=== PATIENT | male | born 1960 | race Caucasian/White ===

== ENCOUNTER 2020-12-20 12:00 | Inpatient (IN) | payer MEDICAID, SELFPAY ==
[~2020-12-20] VITALS: Ht 172.7 cm; Wt 94.8 kg
[~2020-12-20 12:00] MED LIST: ASPI-1393 PO; CEPH-568 PO; FURO-150 PO; LIB25 PO; MET10 PO; METO25TA6 PO; SPIR25TA PO; THIA100T70 PO
[2020-12-20 12:22] VITALS: BP_SYST 84
[2020-12-20] MEDS ORDERED: NACL 0.9% 1,000 ML IV ONE (13:00)
[2020-12-20] MEDS ORDERED: PIPERACILLIN/TAZOBACTAM 3.375 GM/VIAL (ZOSYN) IV ONE ×2 (13:00)
[2020-12-20] MEDS ORDERED: PIPERACILLIN/TAZO 3.375 GM in NS 50 ML IV ONE (13:00)
[2020-12-20] MEDS ORDERED: VANCOMYCIN HCL 1,000 MG in NS 250 ML IV ONE (13:00)
[2020-12-20] MEDS ORDERED: VANCOMYCIN HCL 1000 MG/VIAL IV ONE (13:51)
[2020-12-20 14:28] LABS: BILIRUBIN,URINE 3+ (NEGATIVE); CLARITY/URINE TURBID (CLEAR); GLUCOSE,URINE TRACE (NEGATIVE); KETONES,URINE 1+ (NEGATIVE); LEUKOCYTE ESTERASE ,URINE TRACE (NEGATIVE); NITRITE, URINE POSITIVE (NEGATIVE); PH,URINE 5.5 (5.0-8.0); PROTEIN URINE 1+ (NEGATIVE)
[2020-12-20 14:33] LABS: BLOOD, URINE TRACE (NEGATIVE); COLOR,URINE ORANGE (YELLOW); UROBILINOGEN,URINE >=8 (0.2-1.0)
[2020-12-20 14:39] LABS: BACTERIA,URINE MODERATE /HPF (None Seen); MUCUS,URINE 1+ /LPF (None Seen)
[2020-12-20 14:42] LABS: BARBITURATE, URINE NEGATIVE (NEG <=200); METHAMPHETAMINES SCREEN,URINE NEGATIVE (NEG <=500); URINE AMPHETAMINE NEGATIVE (NEG <=500)
[2020-12-20 14:43] LABS: CANNABINOID, URINE NEGATIVE (NEG <=50); COCAINE, URINE NEGATIVE (NEG <=150); PHENCYCLIDINE SCREEN,URINE NEGATIVE (NEG <=25); URINE METHADONE POSITIVE (NEG <=200)
[2020-12-20 14:44] LABS: BENZODIAZEPINE, URINE POSITIVE (NEG <=150); OPIATE, URINE NEGATIVE (NEG <=100); UR TRICYCLIC ANTIDEPRESSANTS NEGATIVE (NEG <=300); URINE OXYCODONE SCREEN NEGATIVE (NEG <=100); URINE PROPOXYPHENE SCREEN NEGATIVE (NEG <=300)
[2020-12-20 15:30] LABS: BASOPHILS % (AUTO) 0.1 % (0.0-2.0); CALCIUM 7.9 mg/dL (8.4-11.0); CREATININE 0.69 mg/dL (0.55-1.30); EOSINOPHILS % (AUTO) 0.2 % (0.0-4.0); HEMATOCRIT 28.7 % (36-54); HEMOGLOBIN 9.9 g/dL (14.0-18.0); LYMPHOCYTES # (AUTO) 1.1 K/uL (1.0-5.5); LYMPHOCYTES % (AUTO) 15.1 % (20.5-51.5); MEAN CORPUSCULAR HEMOGLOBIN 46 pg (27-31); MEAN CORPUSCULAR HGB CONC 35 % (32-36); MEAN CORPUSCULAR VOLUME 131 fL (79.0-98.0); MONOCYTES # (AUTO) 0.9 K/uL (0.0-1.0); MONOCYTES % (AUTO) 12.4 % (1.7-9.3); NEUTROPHILS # (AUTO) 5.5 K/uL (1.8-7.7); NEUTROPHILS % (AUTO) 72.2 % (40.0-70.0); POTASSIUM 3.2 mmol/L (3.5-5.1); RED BLOOD CELL COUNT(AUTO) 2.18 MIL/uL (4.2-6.2); RED CELL DISTRIBUTION WIDTH 18.5 % (9.0-15.0); WHITE BLOOD COUNT (AUTO) 7.6 K/uL (4.8-10.8)
[2020-12-20 15:34] LABS: ALBUMIN 1.3 g/dL (3.4-4.8); PHOSPHORUS 2.7 mg/dL (2.7-4.5); TOTAL BILIRUBIN 8.5 mg/dL (0.0-1.0)
[2020-12-20 15:40] LABS: PLATELET COUNT (AUTO) 80 K/uL (130-430)
[2020-12-20] MEDS ORDERED: DEXTROSE 50% JECT 50 ML DISP.SYRIN ONE (16:12)
[2020-12-20 17:24] VITALS: BP_SYST 105
[2020-12-20] MEDS ORDERED: THIAMINE HCL 500 MG in NS 50 ML IV ONE (18:45)
[2020-12-20 19:33] LABS: INR 2.6 (0.80-1.20); PROTHROMBIN TIME 26.1 SECS (9.5-12.5)
[2020-12-20] MEDS ORDERED: THIAMINE HCL 100 MG/ML VIAL ONE (20:08)
[2020-12-20 21:44] VITALS: BP_SYST 130
[2020-12-20] MEDS ORDERED: ONDANSETRON HCL 4 MG/2 ML VIAL IVP PRN (23:45)
[2020-12-20] MEDS ORDERED: ACETAMINOPHEN 325 MG TABLET PO PRN (23:45)
[2020-12-21] MEDS ORDERED: FOLIC ACID 1 MG, THIAMINE HCL 100 MG, MAGNESIUM SULFATE 1 GM, MVI 10 ML in NACL 0.9% 1,... IV SCH ×5
[2020-12-21] MEDS ORDERED: KCL 40 mEq in 100 mL (PREMIX) 100 ML IV ONE (00:15)
[2020-12-21] MEDS ORDERED: PIPERACILLIN/TAZOBACTAM 3.375 GM/VIAL (ZOSYN) IV ONE (01:02)
[2020-12-21] MEDS: PIPERACILLIN/TAZO 3.375/DEX-IS 50 ML IV SCH ×5 (01:09→23:20)
[2020-12-21 07:37] LABS: BASOPHILS # (AUTO) 0.1 K/uL (0.0-0.2); BASOPHILS % (AUTO) 0.8 % (0.0-2.0); EOSINOPHILS # (AUTO) 0.1 K/uL (0.0-0.4); EOSINOPHILS % (AUTO) 0.7 % (0.0-4.0); HEMATOCRIT 33.6 % (36-54); HEMOGLOBIN 11.4 g/dL (14.0-18.0); LYMPHOCYTES # (AUTO) 1.1 K/uL (1.0-5.5); LYMPHOCYTES % (AUTO) 15.5 % (20.5-51.5); MEAN CORPUSCULAR HEMOGLOBIN 45 pg (27-31); MEAN CORPUSCULAR HGB CONC 34 % (32-36); MEAN CORPUSCULAR VOLUME 131 fL (79.0-98.0); MONOCYTES # (AUTO) 0.6 K/uL (0.0-1.0); MONOCYTES % (AUTO) 8.6 % (1.7-9.3); NEUTROPHILS # (AUTO) 5.2 K/uL (1.8-7.7); RED BLOOD CELL COUNT(AUTO) 2.56 MIL/uL (4.2-6.2); RED CELL DISTRIBUTION WIDTH 17.8 % (9.0-15.0)
[2020-12-21 07:45] LABS: ALBUMIN 1.3 g/dL (3.4-4.8); CALCIUM 8.2 mg/dL (8.4-11.0); CREATININE 0.7 mg/dL (0.55-1.30); PHOSPHORUS 2.5 mg/dL (2.7-4.5); POTASSIUM 3.8 mmol/L (3.5-5.1); TOTAL BILIRUBIN 8.9 mg/dL (0.0-1.0)
[2020-12-21 08:00] VITALS: BP_SYST 113
[2020-12-21] MEDS: FOLIC ACID 1 MG, MVI 10 ML in NACL 0.9% 1,000 ML IV SCH (08:17)
[2020-12-21] MEDS: SPIRONOLACTONE 25 MG TABLET (ALDACTONE) PO SCH ×2 (08:18→20:36)
[2020-12-21] MEDS: THIAMINE HCL 100 MG, MAGNESIUM SULFATE 1 GM in NS 100 ML IV SCH (08:18)
[2020-12-21] MEDS: FUROSEMIDE 20 MG TABLET PO SCH (08:19)
[2020-12-21] MEDS: METOPROLOL TARTRATE 25 MG TABLET PO SCH ×2 (08:19→20:37)
[2020-12-21] MEDS: ASPIRIN 81 MG TABLET(ECOTRIN) PO SCH (08:19)
[2020-12-21] MEDS: METHADONE HCL 10 MG TABLET PO SCH (08:20)
[2020-12-21 08:23] LABS: NEUTROPHILS % (AUTO) 74.4 % (40.0-70.0)
[2020-12-21] MEDS ORDERED: THIAMINE MONONITRATE PO SCH (09:00)
[2020-12-21 10:33] LABS: ERYTHROCYTE SEDIMENTATION RATE 47 MM/HR (0-15)
[2020-12-21] MEDS: PENTOXIFYLLINE 400 MG TABLET.SA (TRENtal) PO SCH ×2 (10:41→18:00)
[2020-12-21] MEDS: DEXTROSE 50% JECT 50 ML DISP.SYRIN IVP PRN (10:44)
[2020-12-21] MEDS ORDERED: RIFAXIMIN 550 MG TABLET PO ONE (10:45)
[2020-12-21 10:53] LABS: PLATELET COUNT (AUTO) 70 K/uL (130-430)
[2020-12-21 16:05] VITALS: BP_SYST 110
[2020-12-21 20:00] VITALS: BP_SYST 118
[2020-12-21] MEDS: chlordiazePOXIDE HCL 25 MG CAPSULE PO SCH (20:36)
[2020-12-21] MEDS: RIFAXIMIN 550 MG TABLET PO SCH (20:37)
[2020-12-21] MEDS: AZITHROMYCIN 500 MG in NS 250 ML IV SCH (20:45)
[2020-12-22 00:27] VITALS: BP_SYST 115
[2020-12-22] MEDS: PIPERACILLIN/TAZO 3.375/DEX-IS 50 ML IV SCH ×4 (05:22→23:34)
[2020-12-22 07:12] LABS: BASOPHILS % (AUTO) 0.7 % (0.0-2.0); EOSINOPHILS # (AUTO) 0.1 K/uL (0.0-0.4); HEMATOCRIT 34.1 % (36-54); HEMOGLOBIN 11.3 g/dL (14.0-18.0); LYMPHOCYTES # (AUTO) 1.2 K/uL (1.0-5.5); LYMPHOCYTES % (AUTO) 19.3 % (20.5-51.5); MEAN CORPUSCULAR HEMOGLOBIN 44 pg (27-31); MEAN CORPUSCULAR HGB CONC 33 % (32-36); MEAN CORPUSCULAR VOLUME 134 fL (79.0-98.0); MONOCYTES # (AUTO) 0.5 K/uL (0.0-1.0); MONOCYTES % (AUTO) 7.6 % (1.7-9.3); NEUTROPHILS # (AUTO) 4.5 K/uL (1.8-7.7); NEUTROPHILS % (AUTO) 71.4 % (40.0-70.0); PLATELET COUNT (AUTO) 72 K/uL (130-430); RED BLOOD CELL COUNT(AUTO) 2.55 MIL/uL (4.2-6.2); RED CELL DISTRIBUTION WIDTH 19.2 % (9.0-15.0); WHITE BLOOD COUNT (AUTO) 6.3 K/uL (4.8-10.8)
[2020-12-22 08:00] VITALS: BP_SYST 98
[2020-12-22] MEDS: PENTOXIFYLLINE 400 MG TABLET.SA (TRENtal) PO SCH ×3 (08:00→18:00)
[2020-12-22 08:22] LABS: INR 2.2 (0.80-1.20); PROTHROMBIN TIME 22.4 SECS (9.5-12.5)
[2020-12-22] MEDS: METOPROLOL TARTRATE 25 MG TABLET PO SCH ×2 (09:00→19:43)
[2020-12-22] MEDS: SPIRONOLACTONE 25 MG TABLET (ALDACTONE) PO SCH ×2 (09:00→19:43)
[2020-12-22] MEDS: ASPIRIN 81 MG TABLET(ECOTRIN) PO SCH (09:00)
[2020-12-22] MEDS: FUROSEMIDE 20 MG TABLET PO SCH (09:00)
[2020-12-22] MEDS: RIFAXIMIN 550 MG TABLET PO SCH ×2 (09:00→19:43)
[2020-12-22] MEDS: METHADONE HCL 10 MG TABLET PO SCH (09:00)
[2020-12-22] MEDS: THIAMINE HCL 100 MG, MAGNESIUM SULFATE 1 GM in NS 100 ML IV SCH (09:12)
[2020-12-22] MEDS: FOLIC ACID 1 MG, MVI 10 ML in NACL 0.9% 1,000 ML IV SCH (09:15)
[2020-12-22 09:27] LABS: ALBUMIN 1.2 g/dL (3.4-4.8); BILIRUBIN,DIRECT 4.8 mg/dL (0.0-0.3); C-REACTIVE PROTEIN QUANT 6.9 mg/dL (0-0.5); CALCIUM 7.9 mg/dL (8.4-11.0); CREATININE 0.69 mg/dL (0.55-1.30); POTASSIUM 4.1 mmol/L (3.5-5.1); TOTAL BILIRUBIN 8.2 mg/dL (0.0-1.0)
[2020-12-22 11:44] LABS: ERYTHROCYTE SEDIMENTATION RATE 23 MM/HR (0-15)
[2020-12-22] MEDS: DEXTROSE 50% JECT 50 ML DISP.SYRIN IVP PRN ×2 (12:05→18:23)
[2020-12-22 12:30] VITALS: BP_SYST 89
[2020-12-22 16:45] VITALS: BP_SYST 93
[2020-12-22] MEDS: AZITHROMYCIN 500 MG in NS 250 ML IV SCH (19:42)
[2020-12-22] MEDS: LACTULOSE 20 GM/30 ML UDC PO SCH (19:43)
[2020-12-22] MEDS: chlordiazePOXIDE HCL 25 MG CAPSULE PO SCH (19:43)
[2020-12-22 20:00] VITALS: BP_SYST 86
[2020-12-22] MEDS: D5/0.45 NS 1,000 ML IV SCH (21:24)
[2020-12-22 21:28] VITALS: BP_SYST 96
[2020-12-23 00:31] VITALS: BP_SYST 98
[2020-12-23] MEDS: PIPERACILLIN/TAZO 3.375/DEX-IS 50 ML IV SCH ×4 (05:16→23:18)
[2020-12-23 07:29] LABS: ALBUMIN 1.2 g/dL (3.4-4.8); C-REACTIVE PROTEIN QUANT 5.4 mg/dL (0-0.5); PHOSPHORUS 2.1 mg/dL (2.7-4.5); POTASSIUM 3.2 mmol/L (3.5-5.1); TOTAL BILIRUBIN 8.2 mg/dL (0.0-1.0)
[2020-12-23] MEDS: D5/0.45 NS 1,000 ML IV SCH ×3 (07:30→23:17)
[2020-12-23 07:54] LABS: CREATININE 0.82 mg/dL (0.55-1.30)
[2020-12-23] MEDS: PENTOXIFYLLINE 400 MG TABLET.SA (TRENtal) PO SCH ×3 (08:00→17:28)
[2020-12-23 08:15] VITALS: BP_SYST 107
[2020-12-23] MEDS: METOPROLOL TARTRATE 25 MG TABLET PO SCH ×2 (09:00→20:28)
[2020-12-23] MEDS: LACTULOSE 20 GM/30 ML UDC PO SCH ×2 (09:00→20:27)
[2020-12-23] MEDS: RIFAXIMIN 550 MG TABLET PO SCH ×2 (09:00→20:28)
[2020-12-23] MEDS: METHADONE HCL 10 MG TABLET PO SCH (09:00)
[2020-12-23] MEDS: SPIRONOLACTONE 25 MG TABLET (ALDACTONE) PO SCH ×2 (09:00→20:29)
[2020-12-23] MEDS: ASPIRIN 81 MG TABLET(ECOTRIN) PO SCH (09:00)
[2020-12-23] MEDS: FUROSEMIDE 20 MG TABLET PO SCH (09:00)
[2020-12-23] MEDS: FOLIC ACID 1 MG, MVI 10 ML in NACL 0.9% 1,000 ML IV SCH (09:11)
[2020-12-23] MEDS: THIAMINE HCL 100 MG, MAGNESIUM SULFATE 1 GM in NS 100 ML IV SCH (09:11)
[2020-12-23 09:14] LABS: ERYTHROCYTE SEDIMENTATION RATE 44 MM/HR (0-15)
[2020-12-23 09:34] LABS: BASOPHILS % (AUTO) 0.5 % (0.0-2.0); EOSINOPHILS # (AUTO) 0.1 K/uL (0.0-0.4); EOSINOPHILS % (AUTO) 1.2 % (0.0-4.0); HEMATOCRIT 33.3 % (36-54); HEMOGLOBIN 10.8 g/dL (14.0-18.0); LYMPHOCYTES # (AUTO) 1.4 K/uL (1.0-5.5); LYMPHOCYTES % (AUTO) 19.8 % (20.5-51.5); MEAN CORPUSCULAR HEMOGLOBIN 43 pg (27-31); MEAN CORPUSCULAR HGB CONC 32 % (32-36); MONOCYTES # (AUTO) 0.5 K/uL (0.0-1.0); MONOCYTES % (AUTO) 7.5 % (1.7-9.3); NEUTROPHILS # (AUTO) 4.9 K/uL (1.8-7.7); RED CELL DISTRIBUTION WIDTH 18.9 % (9.0-15.0); WHITE BLOOD COUNT (AUTO) 6.9 K/uL (4.8-10.8)
[2020-12-23 09:42] LABS: MEAN CORPUSCULAR VOLUME 133 fL (79.0-98.0)
[2020-12-23 11:26] LABS: PLATELET COUNT (AUTO) 56 K/uL (130-430)
[2020-12-23 12:25] VITALS: BP_SYST 100
[2020-12-23] MEDS ORDERED: K PHOS 30 MM in NS 250 ML IV ONE (12:30)
[2020-12-23 16:11] VITALS: BP_SYST 105
[2020-12-23] MEDS: AZITHROMYCIN 500 MG in NS 250 ML IV SCH (20:18)
[2020-12-23] MEDS: chlordiazePOXIDE HCL 25 MG CAPSULE PO SCH (20:33)
[2020-12-24 00:10] VITALS: BP_SYST 102
[2020-12-24] MEDS: PIPERACILLIN/TAZO 3.375/DEX-IS 50 ML IV SCH ×3 (05:42→17:26)
[2020-12-24 07:09] LABS: INR 2.1 (0.80-1.20); PROTHROMBIN TIME 21.1 SECS (9.5-12.5)
[2020-12-24 07:28] LABS: ALBUMIN 1.1 g/dL (3.4-4.8); BILIRUBIN,DIRECT 4.8 mg/dL (0.0-0.3); C-REACTIVE PROTEIN QUANT 4.6 mg/dL (0-0.5); CALCIUM 7.9 mg/dL (8.4-11.0); CREATININE 0.71 mg/dL (0.55-1.30); POTASSIUM 3.6 mmol/L (3.5-5.1); TOTAL BILIRUBIN 8.7 mg/dL (0.0-1.0)
[2020-12-24 07:51] LABS: BASOPHILS % (AUTO) 0.5 % (0.0-2.0); EOSINOPHILS # (AUTO) 0.1 K/uL (0.0-0.4); EOSINOPHILS % (AUTO) 0.9 % (0.0-4.0); HEMATOCRIT 31.2 % (36-54); HEMOGLOBIN 10.7 g/dL (14.0-18.0); LYMPHOCYTES # (AUTO) 1.2 K/uL (1.0-5.5); MEAN CORPUSCULAR HEMOGLOBIN 46 pg (27-31); MEAN CORPUSCULAR HGB CONC 35 % (32-36); MEAN CORPUSCULAR VOLUME 133 fL (79.0-98.0); MONOCYTES # (AUTO) 0.5 K/uL (0.0-1.0); MONOCYTES % (AUTO) 7.6 % (1.7-9.3); NEUTROPHILS # (AUTO) 4.7 K/uL (1.8-7.7); PLATELET COUNT (AUTO) 59 K/uL (130-430); RED BLOOD CELL COUNT(AUTO) 2.34 MIL/uL (4.2-6.2); RED CELL DISTRIBUTION WIDTH 17.8 % (9.0-15.0); WHITE BLOOD COUNT (AUTO) 6.4 K/uL (4.8-10.8)
[2020-12-24 07:59] VITALS: BP_SYST 106
[2020-12-24] MEDS: PENTOXIFYLLINE 400 MG TABLET.SA (TRENtal) PO SCH ×3 (08:00→17:40)
[2020-12-24] MEDS: METOPROLOL TARTRATE 25 MG TABLET PO SCH ×2 (09:00→20:58)
[2020-12-24 10:31] LABS: ERYTHROCYTE SEDIMENTATION RATE 62 MM/HR (0-15)
[2020-12-24] MEDS: METHADONE HCL 10 MG TABLET PO SCH (10:42)
[2020-12-24] MEDS: SPIRONOLACTONE 25 MG TABLET (ALDACTONE) PO SCH ×2 (10:42→20:57)
[2020-12-24] MEDS: ASPIRIN 81 MG TABLET(ECOTRIN) PO SCH (10:42)
[2020-12-24] MEDS: RIFAXIMIN 550 MG TABLET PO SCH ×2 (10:43→20:56)
[2020-12-24] MEDS: FUROSEMIDE 20 MG TABLET PO SCH (10:43)
[2020-12-24] MEDS: LACTULOSE 20 GM/30 ML UDC PO SCH ×2 (10:43→20:55)
[2020-12-24] MEDS: FOLIC ACID 1 MG, MVI 10 ML in NACL 0.9% 1,000 ML IV SCH (10:45)
[2020-12-24] MEDS: THIAMINE HCL 100 MG, MAGNESIUM SULFATE 1 GM in NS 100 ML IV SCH (10:45)
[2020-12-24 12:28] VITALS: BP_SYST 121
[2020-12-24] MEDS: D5/0.45 NS 1,000 ML IV SCH (13:30)
[2020-12-24 16:14] VITALS: BP_SYST 126
[2020-12-24 20:00] VITALS: BP_SYST 105
[2020-12-24] MEDS: chlordiazePOXIDE HCL 25 MG CAPSULE PO SCH (20:55)
[2020-12-24] MEDS: AZITHROMYCIN 500 MG in NS 250 ML IV SCH (20:55)
[2020-12-25] MEDS: PIPERACILLIN/TAZO 3.375/DEX-IS 50 ML IV SCH ×5 (00:36→23:58)
[2020-12-25 00:50] VITALS: BP_SYST 107
[2020-12-25] MEDS: D5/0.45 NS 1,000 ML IV SCH ×3 (09:30→19:30)
[2020-12-25] MEDS: LACTULOSE 20 GM/30 ML UDC PO SCH ×2 (09:35→21:21)
[2020-12-25] MEDS: FUROSEMIDE 20 MG TABLET PO SCH (09:36)
[2020-12-25] MEDS: ASPIRIN 81 MG TABLET(ECOTRIN) PO SCH (09:36)
[2020-12-25] MEDS: SPIRONOLACTONE 25 MG TABLET (ALDACTONE) PO SCH ×2 (09:36→21:21)
[2020-12-25] MEDS: RIFAXIMIN 550 MG TABLET PO SCH ×2 (09:37→21:21)
[2020-12-25] MEDS: METOPROLOL TARTRATE 25 MG TABLET PO SCH ×2 (09:37→21:21)
[2020-12-25] MEDS: METHADONE HCL 10 MG TABLET PO SCH (09:38)
[2020-12-25] MEDS: PENTOXIFYLLINE 400 MG TABLET.SA (TRENtal) PO SCH ×3 (09:42→18:05)
[2020-12-25] MEDS: FOLIC ACID 1 MG, MVI 10 ML in NACL 0.9% 1,000 ML IV SCH (10:16)
[2020-12-25] MEDS: THIAMINE HCL 100 MG, MAGNESIUM SULFATE 1 GM in NS 100 ML IV SCH (10:18)
[2020-12-25 12:28] VITALS: BP_SYST 117
[2020-12-25 14:12] LABS: BASOPHILS % (AUTO) 0.1 % (0.0-2.0); EOSINOPHILS # (AUTO) 0.1 K/uL (0.0-0.4); EOSINOPHILS % (AUTO) 1.3 % (0.0-4.0); HEMATOCRIT 31.7 % (36-54); HEMOGLOBIN 10.7 g/dL (14.0-18.0); LYMPHOCYTES # (AUTO) 1.1 K/uL (1.0-5.5); LYMPHOCYTES % (AUTO) 10.7 % (20.5-51.5); MEAN CORPUSCULAR HEMOGLOBIN 45 pg (27-31); MEAN CORPUSCULAR HGB CONC 34 % (32-36); MEAN CORPUSCULAR VOLUME 132 fL (79.0-98.0); MONOCYTES # (AUTO) 0.9 K/uL (0.0-1.0); MONOCYTES % (AUTO) 8.5 % (1.7-9.3); NEUTROPHILS % (AUTO) 79.4 % (40.0-70.0); PLATELET COUNT (AUTO) 57 K/uL (130-430); RED CELL DISTRIBUTION WIDTH 17.7 % (9.0-15.0); WHITE BLOOD COUNT (AUTO) 10.1 K/uL (4.8-10.8)
[2020-12-25 14:25] LABS: INR 2.1 (0.80-1.20); PROTHROMBIN TIME 21.1 SECS (9.5-12.5)
[2020-12-25 14:28] LABS: ALBUMIN 1.2 g/dL (3.4-4.8); BILIRUBIN,DIRECT 5.6 mg/dL (0.0-0.3); C-REACTIVE PROTEIN QUANT 5.2 mg/dL (0-0.5); CALCIUM 8.1 mg/dL (8.4-11.0); CREATININE 0.84 mg/dL (0.55-1.30); POTASSIUM 3.5 mmol/L (3.5-5.1); TOTAL BILIRUBIN 9.6 mg/dL (0.0-1.0)
[2020-12-25 14:47] LABS: ERYTHROCYTE SEDIMENTATION RATE 65 MM/HR (0-15)
[2020-12-25 16:17] VITALS: BP_SYST 112
[2020-12-25 20:00] VITALS: BP_SYST 130
[2020-12-25] MEDS: AZITHROMYCIN 500 MG in NS 250 ML IV SCH (21:22)
[2020-12-25] MEDS: chlordiazePOXIDE HCL 25 MG CAPSULE PO SCH (21:24)
[2020-12-25 21:59] LABS: HEPATITIS A AB, IgM Negative (Negative); HEPATITIS B CORE AB, IgM Negative (Negative); HEPATITIS B SURFACE AG Negative (Negative)
[2020-12-26] VITALS (23 sets, daily range): BP systolic 82–125
[2020-12-26] MEDS: LORazepam 2 MG/ML VIAL IVP PRN ×3 (00:27→20:35)
[2020-12-26] MEDS ORDERED: IPRATROPIUM/ALBUTEROL SULFATE 3 ML AMPUL.NEB (DUONEB) INH PRN (00:45)
[2020-12-26] MEDS: D5/0.45 NS 1,000 ML IV SCH ×2 (05:30→15:52)
[2020-12-26] MEDS: PIPERACILLIN/TAZO 3.375/DEX-IS 50 ML IV SCH ×4 (05:50→23:27)
[2020-12-26] MEDS: IPRATROPIUM/ALBUTEROL SULFATE 3 ML AMPUL.NEB (DUONEB) INH SCH ×5 (07:00→23:17)
[2020-12-26] MEDS: PENTOXIFYLLINE 400 MG TABLET.SA (TRENtal) PO SCH ×3 (08:00→19:55)
[2020-12-26] MEDS: SPIRONOLACTONE 25 MG TABLET (ALDACTONE) PO SCH ×2 (09:00→20:09)
[2020-12-26] MEDS: ASPIRIN 81 MG TABLET(ECOTRIN) PO SCH (09:00)
[2020-12-26] MEDS: FUROSEMIDE 20 MG TABLET PO SCH (09:00)
[2020-12-26] MEDS: LACTULOSE 20 GM/30 ML UDC PO SCH ×2 (09:00→20:09)
[2020-12-26] MEDS: METHADONE HCL 10 MG TABLET PO SCH (09:00)
[2020-12-26] MEDS: RIFAXIMIN 550 MG TABLET PO SCH ×3 (09:00→20:10)
[2020-12-26] MEDS: METOPROLOL TARTRATE 25 MG TABLET PO SCH ×2 (09:00→20:09)
[2020-12-26] MEDS: THIAMINE HCL 100 MG, MAGNESIUM SULFATE 1 GM in NS 100 ML IV SCH (09:38)
[2020-12-26] MEDS: FOLIC ACID 1 MG, MVI 10 ML in NACL 0.9% 1,000 ML IV SCH (09:38)
[2020-12-26] MEDS: ALBUMIN HUMAN 5% 250 ML IV SCH ×3 (12:30→23:27)
[2020-12-26] MEDS: FUROSEMIDE 20 MG/2 ML VIAL IVP SCH ×2 (13:15→20:08)
[2020-12-26] MEDS: NOREPINEPHRINE BITARTRATE 16 MG in NS 234 ML IV PRN (16:16)
[2020-12-26] MEDS: chlordiazePOXIDE HCL 25 MG CAPSULE PO SCH (20:09)
[2020-12-27] VITALS (28 sets, daily range): BP systolic 91–160
[2020-12-27] MEDS: LORazepam 2 MG/ML VIAL IVP PRN ×4 (02:06→14:57)
[2020-12-27] MEDS: IPRATROPIUM/ALBUTEROL SULFATE 3 ML AMPUL.NEB (DUONEB) INH SCH ×5 (03:20→19:55)
[2020-12-27] MEDS: PIPERACILLIN/TAZO 3.375/DEX-IS 50 ML IV SCH (05:24)
[2020-12-27] MEDS: ALBUMIN HUMAN 5% 250 ML IV SCH (05:31)
[2020-12-27] MEDS ORDERED: INSULIN REGULAR, HUMAN 100 UNITS/ML, 10 ML VIAL (humuLIN R) SUBCUT PRN (06:00)
[2020-12-27 06:53] LABS: INR 2.2 (0.80-1.20); PROTHROMBIN TIME 22.7 SECS (9.5-12.5)
[2020-12-27 06:57] LABS: ALBUMIN 1.5 g/dL (3.4-4.8); BILIRUBIN,DIRECT 4.7 mg/dL (0.0-0.3); C-REACTIVE PROTEIN QUANT 4.8 mg/dL (0-0.5); CALCIUM 8.2 mg/dL (8.4-11.0); CREATININE 0.83 mg/dL (0.55-1.30); TOTAL BILIRUBIN 9.3 mg/dL (0.0-1.0)
[2020-12-27 07:06] LABS: POTASSIUM 2.9 mmol/L (3.5-5.1)
[2020-12-27 07:34] LABS: BASOPHILS % (AUTO) 0.2 % (0.0-2.0); EOSINOPHILS # (AUTO) 0.2 K/uL (0.0-0.4); EOSINOPHILS % (AUTO) 1.6 % (0.0-4.0); HEMATOCRIT 25.6 % (36-54); HEMOGLOBIN 8.6 g/dL (14.0-18.0); LYMPHOCYTES # (AUTO) 1.4 K/uL (1.0-5.5); MEAN CORPUSCULAR HEMOGLOBIN 45 pg (27-31); MEAN CORPUSCULAR HGB CONC 34 % (32-36); MEAN CORPUSCULAR VOLUME 133 fL (79.0-98.0); MONOCYTES % (AUTO) 7.9 % (1.7-9.3); NEUTROPHILS # (AUTO) 9.7 K/uL (1.8-7.7); NEUTROPHILS % (AUTO) 79.3 % (40.0-70.0); RED CELL DISTRIBUTION WIDTH 17.6 % (9.0-15.0); WHITE BLOOD COUNT (AUTO) 12.2 K/uL (4.8-10.8)
[2020-12-27 09:28] LABS: RED BLOOD CELL COUNT(AUTO) 1.92 MIL/uL (4.2-6.2)
[2020-12-27 09:29] LABS: PLATELET COUNT (AUTO) 47 K/uL (130-430)
[2020-12-27] MEDS: FOLIC ACID 1 MG, MVI 10 ML in NACL 0.9% 1,000 ML IV SCH (09:41)
[2020-12-27] MEDS: THIAMINE HCL 100 MG, MAGNESIUM SULFATE 1 GM in NS 100 ML IV SCH (09:56)
[2020-12-27] MEDS ORDERED: POTASSIUM CHLORIDE 40 MEQ in NS 250 ML IV ONE (10:00)
[2020-12-27] MEDS: FUROSEMIDE 20 MG/2 ML VIAL IVP SCH ×2 (10:39→20:42)
[2020-12-27] MEDS: LACTULOSE 20 GM/30 ML UDC PO SCH ×2 (10:40→20:42)
[2020-12-27] MEDS: METOPROLOL TARTRATE 25 MG TABLET PO SCH ×2 (10:41→20:42)
[2020-12-27] MEDS: METHADONE HCL 10 MG TABLET PO SCH (10:42)
[2020-12-27] MEDS: SPIRONOLACTONE 25 MG TABLET (ALDACTONE) PO SCH ×2 (10:48→20:41)
[2020-12-27] MEDS: ASPIRIN 81 MG TABLET(ECOTRIN) PO SCH (10:49)
[2020-12-27] MEDS: RIFAXIMIN 550 MG TABLET PO SCH ×2 (10:50→20:42)
[2020-12-27] MEDS: PENTOXIFYLLINE 400 MG TABLET.SA (TRENtal) PO SCH ×3 (12:00→17:23)
[2020-12-27 13:33] LABS: ERYTHROCYTE SEDIMENTATION RATE 42 MM/HR (0-15)
[2020-12-27] MEDS ORDERED: MORPHINE SULFATE IN 0.9 % NACL 100 ML IV ONE (15:45)
[2020-12-27] MEDS ORDERED: MORPHINE SULFATE IN 0.9 % NACL 100 ML IV PRN (15:45)
[2020-12-27] MEDS ORDERED: PROPOFOL DRIP 100 ML IV ONE (15:46)
[2020-12-27] MEDS: PROPOFOL DRIP 100 ML IV PRN (16:55)
[2020-12-27] MEDS ORDERED: ROCURONIUM BROMIDE 10 MG/ML (ZEMURON) IV ONE (16:57)
[2020-12-27] MEDS ORDERED: ETOMIDATE 20 MG/ 10 ML VIAL (AMIDATE) IVP ONE (16:57)
[2020-12-27] MEDS: D5/0.45 NS 1,000 ML IV SCH (20:41)
[2020-12-27] MEDS: chlordiazePOXIDE HCL 25 MG CAPSULE PO SCH (20:42)
[2020-12-28] VITALS (33 sets, daily range): BP systolic 98–121
[2020-12-28] MEDS: IPRATROPIUM/ALBUTEROL SULFATE 3 ML AMPUL.NEB (DUONEB) INH SCH ×7 (00:24→22:28)
[2020-12-28] MEDS ORDERED: PROPOFOL DRIP 100 ML IV ONE (02:39)
[2020-12-28] MEDS: NOREPINEPHRINE BITARTRATE 16 MG in NS 234 ML IV PRN (04:00)
[2020-12-28] MEDS: PROPOFOL DRIP 100 ML IV PRN ×2 (05:00→17:45)
[2020-12-28 06:05] LABS: BASOPHILS # (AUTO) 0.1 K/uL (0.0-0.2); BASOPHILS % (AUTO) 0.8 % (0.0-2.0); EOSINOPHILS # (AUTO) 0.6 K/uL (0.0-0.4); EOSINOPHILS % (AUTO) 3.7 % (0.0-4.0); HEMATOCRIT 25.7 % (36-54); HEMOGLOBIN 8.9 g/dL (14.0-18.0); LYMPHOCYTES % (AUTO) 12.8 % (20.5-51.5); MEAN CORPUSCULAR HEMOGLOBIN 47 pg (27-31); MEAN CORPUSCULAR HGB CONC 35 % (32-36); MEAN CORPUSCULAR VOLUME 136 fL (79.0-98.0); MONOCYTES # (AUTO) 0.6 K/uL (0.0-1.0); MONOCYTES % (AUTO) 4.1 % (1.7-9.3); NEUTROPHILS # (AUTO) 12.1 K/uL (1.8-7.7); NEUTROPHILS % (AUTO) 78.6 % (40.0-70.0); PLATELET COUNT (AUTO) 75 K/uL (130-430); RED CELL DISTRIBUTION WIDTH 18.1 % (9.0-15.0); WHITE BLOOD COUNT (AUTO) 15.4 K/uL (4.8-10.8)
[2020-12-28 07:59] LABS: RED BLOOD CELL COUNT(AUTO) 1.89 MIL/uL (4.2-6.2)
[2020-12-28 08:02] LABS: INR 2.2 (0.80-1.20); PROTHROMBIN TIME 22.2 SECS (9.5-12.5)
[2020-12-28 08:40] LABS: ALBUMIN 1.5 g/dL (3.4-4.8); BILIRUBIN,DIRECT 4.9 mg/dL (0.0-0.3); CALCIUM 8.4 mg/dL (8.4-11.0)
[2020-12-28 08:52] LABS: C-REACTIVE PROTEIN QUANT 7.9 mg/dL (0-0.5)
[2020-12-28 08:53] LABS: CREATININE 0.65 mg/dL (0.55-1.30); POTASSIUM 3.5 mmol/L (3.5-5.1)
[2020-12-28 08:54] LABS: TOTAL BILIRUBIN 8.8 mg/dL (0.0-1.0)
[2020-12-28] MEDS: LACTULOSE 20 GM/30 ML UDC PO SCH ×2 (09:00→21:57)
[2020-12-28] MEDS: PENTOXIFYLLINE 400 MG TABLET.SA (TRENtal) PO SCH ×3 (09:01→17:43)
[2020-12-28] MEDS: ASPIRIN 81 MG TABLET(ECOTRIN) PO SCH (09:01)
[2020-12-28] MEDS: SPIRONOLACTONE 25 MG TABLET (ALDACTONE) PO SCH ×2 (09:01→21:56)
[2020-12-28] MEDS: RIFAXIMIN 550 MG TABLET PO SCH ×2 (09:02→21:57)
[2020-12-28] MEDS: METHADONE HCL 10 MG TABLET PO SCH (09:02)
[2020-12-28] MEDS: METOPROLOL TARTRATE 25 MG TABLET PO SCH ×2 (09:03→21:57)
[2020-12-28] MEDS: FUROSEMIDE 20 MG/2 ML VIAL IVP SCH ×3 (09:03→21:58)
[2020-12-28] MEDS: FOLIC ACID 1 MG, MVI 10 ML in NACL 0.9% 1,000 ML IV SCH (09:04)
[2020-12-28] MEDS: THIAMINE HCL 100 MG, MAGNESIUM SULFATE 1 GM in NS 100 ML IV SCH (09:04)
[2020-12-28 10:20] LABS: ERYTHROCYTE SEDIMENTATION RATE 39 MM/HR (0-15)
[2020-12-28] MEDS: VANCOMYCIN HCL 1.25 GM/NS 250 ML IV SCH ×2 (17:42→23:37)
[2020-12-28] MEDS: D5/0.45 NS 1,000 ML IV SCH (17:43)
[2020-12-28] MEDS ORDERED: MAGNESIUM SULFATE 50 ML IV ONE (19:15)
[2020-12-28] MEDS ORDERED: POTASSIUM CHLORIDE 20 MEQ/PKT PACKET PO ONE (19:15)
[2020-12-28] MEDS ORDERED: NOREPINEPHRINE 4 MG/4 ML VIAL IV ONE (21:19)
[2020-12-28] MEDS: chlordiazePOXIDE HCL 25 MG CAPSULE PO SCH (21:57)
[2020-12-28] MEDS: MEROPENEM 1 GM IVPB PREMIX 50 ML IV SCH (23:12)
[2020-12-29] VITALS (36 sets, daily range): BP systolic 100–127
[2020-12-29] MEDS: IPRATROPIUM/ALBUTEROL SULFATE 3 ML AMPUL.NEB (DUONEB) INH SCH ×6 (03:29→22:54)
[2020-12-29] MEDS: MEROPENEM 1 GM IVPB PREMIX 50 ML IV SCH ×3 (05:56→21:19)
[2020-12-29 06:50] LABS: INR 2.2 (0.80-1.20); PROTHROMBIN TIME 22.6 SECS (9.5-12.5)
[2020-12-29] MEDS ORDERED: POTASSIUM CHLORIDE 20 MEQ/PKT PACKET PO ONE (07:45)
[2020-12-29] MEDS ORDERED: MAGNESIUM SULFATE 50 ML IV ONE (07:45)
[2020-12-29 07:56] LABS: BASOPHILS # (AUTO) 0.2 K/uL (0.0-0.2); BASOPHILS % (AUTO) 1.3 % (0.0-2.0); EOSINOPHILS # (AUTO) 0.9 K/uL (0.0-0.4); EOSINOPHILS % (AUTO) 5.8 % (0.0-4.0); HEMATOCRIT 27.8 % (36-54); HEMOGLOBIN 9.6 g/dL (14.0-18.0); LYMPHOCYTES # (AUTO) 1.8 K/uL (1.0-5.5); LYMPHOCYTES % (AUTO) 11.1 % (20.5-51.5); MEAN CORPUSCULAR HEMOGLOBIN 47 pg (27-31); MEAN CORPUSCULAR HGB CONC 35 % (32-36); MEAN CORPUSCULAR VOLUME 136 fL (79.0-98.0); MONOCYTES # (AUTO) 0.7 K/uL (0.0-1.0); MONOCYTES % (AUTO) 4.4 % (1.7-9.3); NEUTROPHILS # (AUTO) 12.4 K/uL (1.8-7.7); NEUTROPHILS % (AUTO) 77.4 % (40.0-70.0); PLATELET COUNT (AUTO) 83 K/uL (130-430); RED BLOOD CELL COUNT(AUTO) 2.05 MIL/uL (4.2-6.2); RED CELL DISTRIBUTION WIDTH 18.3 % (9.0-15.0)
[2020-12-29 08:06] LABS: ALBUMIN 1.3 g/dL (3.4-4.8); CALCIUM 8.4 mg/dL (8.4-11.0); THYROID STIMULATING HORMONE 1.11 uIu/mL (0.34-4.82); TOTAL BILIRUBIN 6.7 mg/dL (0.0-1.0)
[2020-12-29] MEDS: VANCOMYCIN HCL 1.25 GM/NS 250 ML IV SCH (09:13)
[2020-12-29] MEDS: ASPIRIN 81 MG TABLET(ECOTRIN) PO SCH (09:13)
[2020-12-29] MEDS: METHADONE HCL 10 MG TABLET PO SCH (09:13)
[2020-12-29] MEDS: LACTULOSE 20 GM/30 ML UDC PO SCH ×2 (09:13→21:20)
[2020-12-29] MEDS: METOPROLOL TARTRATE 25 MG TABLET PO SCH ×2 (09:14→21:20)
[2020-12-29] MEDS: RIFAXIMIN 550 MG TABLET PO SCH ×2 (09:14→21:20)
[2020-12-29] MEDS: PENTOXIFYLLINE 400 MG TABLET.SA (TRENtal) PO SCH ×3 (09:14→18:16)
[2020-12-29] MEDS: SPIRONOLACTONE 25 MG TABLET (ALDACTONE) PO SCH ×2 (09:14→21:20)
[2020-12-29] MEDS ORDERED: FUROSEMIDE 20 MG/2 ML VIAL IVP ONE (09:30)
[2020-12-29] MEDS ORDERED: FUROSEMIDE 40 MG/4 ML VIAL ONE (09:34)
[2020-12-29] MEDS ORDERED: FUROSEMIDE 40 MG/4 ML VIAL IVP ONE (10:00)
[2020-12-29 12:23] LABS: CREATININE 0.74 mg/dL (0.55-1.30)
[2020-12-29 12:24] LABS: POTASSIUM 3.2 mmol/L (3.5-5.1)
[2020-12-29] MEDS ORDERED: KCL 40 mEq in 100 mL (PREMIX) 100 ML IV ONE (12:45)
[2020-12-29] MEDS: chlordiazePOXIDE HCL 25 MG CAPSULE PO SCH (21:00)
[2020-12-29] MEDS ORDERED: FUROSEMIDE 20 MG/2 ML VIAL IVP SCH (21:00)
[2020-12-29] MEDS: FUROSEMIDE 40 MG/4 ML VIAL IVP SCH (21:19)
[2020-12-30] VITALS (36 sets, daily range): BP systolic 78–113
[2020-12-30] MEDS ORDERED: NOREPINEPHRINE 4 MG/4 ML VIAL IV ONE ×4 (01:30→21:18)
[2020-12-30] MEDS: NOREPINEPHRINE BITARTRATE 16 MG in NS 234 ML IV PRN ×3 (01:36→22:00)
[2020-12-30] MEDS: IPRATROPIUM/ALBUTEROL SULFATE 3 ML AMPUL.NEB (DUONEB) INH SCH ×6 (03:32→23:00)
[2020-12-30] MEDS: PROPOFOL DRIP 100 ML IV PRN ×2 (04:54→14:50)
[2020-12-30] MEDS: MEROPENEM 1 GM IVPB PREMIX 50 ML IV SCH ×3 (04:55→21:54)
[2020-12-30 07:01] LABS: BASOPHILS # (AUTO) 0.1 K/uL (0.0-0.2); BASOPHILS % (AUTO) 0.4 % (0.0-2.0); EOSINOPHILS # (AUTO) 0.1 K/uL (0.0-0.4); EOSINOPHILS % (AUTO) 0.8 % (0.0-4.0); HEMATOCRIT 29.1 % (36-54); HEMOGLOBIN 10.4 g/dL (14.0-18.0); LYMPHOCYTES # (AUTO) 0.8 K/uL (1.0-5.5); LYMPHOCYTES % (AUTO) 5.5 % (20.5-51.5); MEAN CORPUSCULAR HEMOGLOBIN 47 pg (27-31); MEAN CORPUSCULAR HGB CONC 36 % (32-36); MEAN CORPUSCULAR VOLUME 133 fL (79.0-98.0); MONOCYTES # (AUTO) 0.8 K/uL (0.0-1.0); NEUTROPHILS # (AUTO) 13.4 K/uL (1.8-7.7); NEUTROPHILS % (AUTO) 88.3 % (40.0-70.0); PLATELET COUNT (AUTO) 77 K/uL (130-430); RED BLOOD CELL COUNT(AUTO) 2.19 MIL/uL (4.2-6.2); RED CELL DISTRIBUTION WIDTH 18.1 % (9.0-15.0); WHITE BLOOD COUNT (AUTO) 15.1 K/uL (4.8-10.8)
[2020-12-30 07:37] LABS: INR 2.3 (0.80-1.20); PROTHROMBIN TIME 22.9 SECS (9.5-12.5)
[2020-12-30 07:57] LABS: ALBUMIN 1.3 g/dL (3.4-4.8); C-REACTIVE PROTEIN QUANT 11.6 mg/dL (0-0.5); CALCIUM 8.6 mg/dL (8.4-11.0); TOTAL BILIRUBIN 6.3 mg/dL (0.0-1.0); VANCOMYCIN,RANDOM 32.2 ug/mL
[2020-12-30] MEDS: PENTOXIFYLLINE 400 MG TABLET.SA (TRENtal) PO SCH ×3 (08:00→18:00)
[2020-12-30 08:41] LABS: ERYTHROCYTE SEDIMENTATION RATE 50 MM/HR (0-15)
[2020-12-30] MEDS: SPIRONOLACTONE 25 MG TABLET (ALDACTONE) PO SCH ×2 (09:00→21:00)
[2020-12-30] MEDS: RIFAXIMIN 550 MG TABLET PO SCH ×2 (09:00→21:00)
[2020-12-30] MEDS: ASPIRIN 81 MG TABLET(ECOTRIN) PO SCH (09:00)
[2020-12-30] MEDS: METHADONE HCL 10 MG TABLET PO SCH (09:00)
[2020-12-30] MEDS: METOPROLOL TARTRATE 25 MG TABLET PO SCH ×2 (09:00→21:00)
[2020-12-30] MEDS: LACTULOSE 20 GM/30 ML UDC PO SCH ×2 (09:00→21:00)
[2020-12-30] MEDS ORDERED: OCTREOTIDE ACETATE 1,250 MCG in NS 243.75 ML IV SCH (09:00)
[2020-12-30] MEDS ORDERED: PHYTONADIONE 10 MG/ML AMP SUBCUT ONE (09:15)
[2020-12-30] MEDS ORDERED: PANTOPRAZOLE SODIUM 40 MG/VIAL (PROTONIX) ONE (10:19)
[2020-12-30] MEDS: FUROSEMIDE 40 MG/4 ML VIAL IVP SCH ×2 (10:24→21:00)
[2020-12-30] MEDS: D5NS 1,000 ML IV SCH ×2 (10:25→22:20)
[2020-12-30 11:51] LABS: HEMATOCRIT 32.9 % (36-54); HEMOGLOBIN 10.5 g/dL (14.0-18.0)
[2020-12-30] MEDS: PANTOPRAZOLE SODIUM 40 MG in NS 50 ML IV SCH ×2 (12:02→14:10)
[2020-12-30 12:06] LABS: POTASSIUM 3.6 mmol/L (3.5-5.1)
[2020-12-30 12:08] LABS: CREATININE 1.3 mg/dL (0.55-1.30)
[2020-12-30 13:50] LABS: BASOPHILS % (AUTO) 0.1 % (0.0-2.0); EOSINOPHILS % (AUTO) 0.1 % (0.0-4.0); HEMATOCRIT 32.9 % (36-54); HEMOGLOBIN 10.6 g/dL (14.0-18.0); LYMPHOCYTES # (AUTO) 0.8 K/uL (1.0-5.5); LYMPHOCYTES % (AUTO) 5.5 % (20.5-51.5); MEAN CORPUSCULAR HEMOGLOBIN 45 pg (27-31); MEAN CORPUSCULAR HGB CONC 32 % (32-36); MEAN CORPUSCULAR VOLUME 138 fL (79.0-98.0); MONOCYTES # (AUTO) 0.9 K/uL (0.0-1.0); MONOCYTES % (AUTO) 6.2 % (1.7-9.3); NEUTROPHILS % (AUTO) 88.1 % (40.0-70.0); RED BLOOD CELL COUNT(AUTO) 2.39 MIL/uL (4.2-6.2); RED CELL DISTRIBUTION WIDTH 18.5 % (9.0-15.0); WHITE BLOOD COUNT (AUTO) 14.8 K/uL (4.8-10.8)
[2020-12-30 13:52] LABS: PLATELET COUNT (AUTO) 48 K/uL (130-430)
[2020-12-30] MEDS: PHENYLEPHRINE HCL 100 MG in NS 240 ML IV PRN (17:52)
[2020-12-30] MEDS: DEXTROSE 50% JECT 50 ML DISP.SYRIN IVP PRN (18:40)
[2020-12-30] MEDS ORDERED: VASOPRESSIN 20 UNITS/ML VIAL IV ONE ×2 (20:24→22:24)
[2020-12-30] MEDS ORDERED: PANTOPRAZOLE SODIUM 40 MG/VIAL (PROTONIX) IVP SCH (21:00)
[2020-12-30] MEDS: NS IV PRN ×3 (21:00→22:33)
[2020-12-30] MEDS: chlordiazePOXIDE HCL 25 MG CAPSULE PO SCH (21:00)
[2020-12-30] MEDS: VASOPRESSIN IV PRN ×3 (21:00→22:33)
[2020-12-30] MEDS ORDERED: ADENOSINE 6MG/2ML VIAL ONE (23:42)
[2020-12-30] MEDS ORDERED: ADENOSINE 6MG/2ML VIAL IVP ONE (23:45)
[2020-12-31] VITALS: BP_SYST 113
[2020-12-31] MEDS ORDERED: PHENYLEPHRINE HCL 10 MG/ML VIAL (NEOSYNEPHRINE) ONE (00:46)
[2020-12-31 01:00] VITALS: BP_SYST 125
[2020-12-31] MEDS ORDERED: NOREPINEPHRINE 4 MG/4 ML VIAL IV ONE (01:01)
[2020-12-31 01:20] VITALS: BP_SYST 93
[2020-12-31] MEDS: NOREPINEPHRINE BITARTRATE 16 MG in NS 234 ML IV PRN (01:26)
[2020-12-31] MEDS: PHENYLEPHRINE HCL 100 MG in NS 240 ML IV PRN (01:30)
[2020-12-31 02:00] VITALS: BP_SYST 103
[2020-12-31] MEDS: DEXTROSE 50% JECT 50 ML DISP.SYRIN IVP PRN (02:06)
[2020-12-31] MEDS ORDERED: ADENOSINE 6MG/2ML VIAL IVP ONE (03:15)
== END 2020-12-31 03:24 | DRG 720 ==
LOC: SED 12:00 → STU 16:40 → SIC 12-26 13:51
PROVIDERS: ADMIT Preventive Medicine Preventive Medicine/Occupational Environmental Medicine; ATTEND Preventive Medicine Preventive Medicine/Occupational Environmental Medicine
PROC: 02HV33Z Insertion of Infusion Device into Superior Vena Cava, Percutaneous Approach (ICD-10-PCS; 2020-12-20)
PROC: B548ZZA Ultrasonography of Superior Vena Cava, Guidance (ICD-10-PCS; 2020-12-20)
PROC: 5A09457 Assistance with Respiratory Ventilation, 24-96 Consecutive Hours, Continuous Positive Airway Pressure (ICD-10-PCS; 2020-12-20)
PROC: 5A09357 Assistance with Respiratory Ventilation, Less than 24 Consecutive Hours, Continuous Positive Airway Pressure (ICD-10-PCS; 2020-12-21)
PROC: 5A09357 Assistance with Respiratory Ventilation, Less than 24 Consecutive Hours, Continuous Positive Airway Pressure (ICD-10-PCS; 2020-12-26)
PROC: 5A1945Z Respiratory Ventilation, 24-96 Consecutive Hours (ICD-10-PCS; principal; 2020-12-27)
PROC: 0BH17EZ Insertion of Endotracheal Airway into Trachea, Via Natural or Artificial Opening (ICD-10-PCS; 2020-12-27)
PROC: 5A09357 Assistance with Respiratory Ventilation, Less than 24 Consecutive Hours, Continuous Positive Airway Pressure (ICD-10-PCS; 2020-12-27)
PROC: 30233R1 Transfusion of Nonautologous Platelets into Peripheral Vein, Percutaneous Approach (ICD-10-PCS; 2020-12-30)
PROC: 5A12012 Performance of Cardiac Output, Single, Manual (ICD-10-PCS; 2020-12-31)
DX: A41.9 Sepsis, unspecified organism (principal); J96.01 Acute respiratory failure with hypoxia; R65.21 Severe sepsis with septic shock; G92 Toxic encephalopathy; D61.818 Other pancytopenia; E43 Unspecified severe protein-calorie malnutrition; D68.4 Acquired coagulation factor deficiency; K72.90 Hepatic failure, unspecified without coma; E87.2 Acidosis; D68.59 Other primary thrombophilia; E83.39 Other disorders of phosphorus metabolism; K70.10 Alcoholic hepatitis without ascites; E16.2 Hypoglycemia, unspecified; E87.6 Hypokalemia; E78.5 Hyperlipidemia, unspecified; E83.51 Hypocalcemia; E87.0 Hyperosmolality and hypernatremia; E87.5 Hyperkalemia; F11.10 Opioid abuse, uncomplicated; I25.10 Atherosclerotic heart disease of native coronary artery without angina pectoris; J18.9 Pneumonia, unspecified organism; K70.30 Alcoholic cirrhosis of liver without ascites; L03.115 Cellulitis of right lower limb; L03.116 Cellulitis of left lower limb; N39.0 Urinary tract infection, site not specified; R53.81 Other malaise; D68.9 Coagulation defect, unspecified; E87.8 Other disorders of electrolyte and fluid balance, not elsewhere classified; K82.8 Other specified diseases of gallbladder; G93.1 Anoxic brain damage, not elsewhere classified; I42.6 Alcoholic cardiomyopathy; F10.239 Alcohol dependence with withdrawal, unspecified; R73.9 Hyperglycemia, unspecified; Z20.822 Contact with and (suspected) exposure to COVID-19; D53.9 Nutritional anemia, unspecified; I11.0 Hypertensive heart disease with heart failure; Z79.82 Long term (current) use of aspirin; Z95.2 Presence of prosthetic heart valve; Z99.11 Dependence on respirator [ventilator] status; Z79.899 Other long term (current) drug therapy; Z68.31 Body mass index [BMI] 31.0-31.9, adult; K92.2 Gastrointestinal hemorrhage, unspecified; I46.9 Cardiac arrest, cause unspecified
CPT/HCPCS: 36415; 36600; 70450-TC; 71045; 76376; 76700-TC; 80048; 80053; 80074; 80076; 80202; 80307; 81000; 82140; 82248; 82803-TC; 82962; 83605; 83690; 83735; 83880; 84100; 84443; 84484; 85018; 85025; 85610-TC; 85651-TC; 85730-TC; 86140; 86886; 86900; 86901; 87040-TC; 87070-TC; 87081; 87086; 87205-TC; 92610-GN; 92950; 93005; 94002; 94003; 94640; 94660; 94760; 95816; 96365; 96366; 96367; 97530-GP; 99291; C9113; G0378; G0482; J0153; J0456; J1815; J1940; J2060; J2185; J2270; J2354; J2370; J2543; J2704; J3370; J3411; J3430; J3475; J3480; J3490; J7030; J7050; P9034; P9041; U0003